=== PATIENT | female | born 1975 | race Caucasian/White ===

== ENCOUNTER 2016-09-20 18:22 | Emergency (ER) | payer SELFPAY ==
[2016-09-20 18:28] VITALS: BMI 27.4
--- NOTE | 2016-09-20 18:42 | DR.HEADACH ---
HPI - Time Seen Time seen: 18:40 - Primary Care Physician Primary Care Physician: JACKIE - Complaint/Symptoms Chief Complaint Doctors Comments: Patient states that she had had her migraine for three days and it is not getting better. The pain is throbbing, frontal, sharp, aggravated by light and noise. She is followed by neurologist Dr Mejia. Chief Complaint:: PT. C/O MIGRAINE THAT BEGAN TUESDAY. PT. STATES THIS IS THE WORST ONE SHE HAS EVER HAD. - Source History Provided: Patient - Mode of Arrival Mode of Arrival: Ambulatory - Timing Onset of Chief Complaint: 09/17/16 PMH - PMH Past Medical History: Yes Past Medical History: Asthma, Headaches Past Surgical History: Yes Surgical History: - Family History History of Family Medical Conditions: Yes Family Medical History: Cancer - Social History Does patient currently use any type of tobacco product: No Have you used tobacco products in the last 12 months: No Type of Tobacco Use: None Does any household member use tobacco: No Alcohol Use: None Do you use any recreational Drugs:: No Lives With: Family Lives Where: Home - infectious screening In the last 2 months have you had wt loss of >10#?: NO Have you had fever, night sweats or hemotysis?: No Have you traveled outside the country in the last 6 months?: No Isolation: Standard ROS - Review of Systems Constitutional: No Symptoms Reported Eyes: No Symptoms Reported ENTM: No Symptoms Reported Respiratoy: No Symptoms Reported Cardiovascular: No Symptoms Reported Gastrointestinal/Abdominal: No Symptoms Reported Genitourinary: No Symptoms Reported Neurological: Headache Musculoskeletal: No Symptoms Reported Integumentary: No Symptoms Reported Hematologic/Lymphatic: No Symptoms Reported Endocrine: No Symptoms Reported Psychiatric: No Symptoms Reported All Other Systems: Reviewed and Negative PE - Vital Signs Vitals: Temperature 99.5 F Pulse Rate [Left Brachial] 110 Pulse Rate 139 Respiratory Rate 18 Blood Pressure [Left Arm] 95/63 Blood Pressure 86/41 O2 Sat by Pulse Oximetry 100 - General Limitations: No Limitations General Appearance: Alert, In No Apparent Distress - Head Head Exam: Normal Inspection, Atraumatic - Eyes Eye exam: Normal Appearance, PERRL, EOMI Eyelids: Normal Inspection: Bilateral Pupils: Regular, Round: Bilateral - ENT ENT Exam: Normal Exam External Ear Exam: Normal External Inspection TM/Canal Exam: Bilateral Normal Nose Exam: Normal Nose Exam Mouth Exam: Normal Inspection Teeth Exam: Normal Inspection Throat Exam: Normal Inspection - Neck Neck Exam: Normal Inspection - Chest Chest Inspection: Normal Inspection - Respiratory Respiratory Exam: Normal Lung Sounds Bilat Respiratory Exam: Bilateral Clear to Auscultation - Cardiovascular Cardiovascular Exam: Regular Rate, Normal Rhythm - Abdominal Exam Abdominal Exam: Normal Inspection Abdominal Tenderness: negative: RUQ, RLQ, LUQ, LLQ, Epigastrium, Suprapubic, Diffuse, Mild, Moderate, Severe, Other - Extremities Extremities Exam: Normal Inspection, Full ROM - Back Back Exam: Normal Inspection - Neurologic Neurological Exam: Alert, Oriented X3, CN II-XII Intact - Psychiatric Psychiatric Exam: Normal Affect - Skin Skin Exam: Warm, Dry Course - Treatment Treatment: Demerol 25mg,x2,zofran,ns 500ml - Reevaluation 1st: Improved - Diagnosis Discharge Problem: Migraine headache Qualifiers: Migraine type: without aura Status migrainosus presence: without status migrainosus Intractability: intractable Qualified Code(s): G43.019 - Migraine without aura, intractable, without status migrainosus - Discharge Plan Condition: Stable - Follow ups/Referrals Follow ups/Referrals: MOISES MEJIA [Primary Care Provider] - 3 days - Instructions
[2016-09-20] MEDS ORDERED: NS 1000 ML 500 ML IV ONE (18:44)
[2016-09-20] MEDS ORDERED: DECADRON INJ IV ONE (18:46)
[2016-09-20] MEDS ORDERED: PHENERGAN INJ 25 MG IV ONE (18:47)
[2016-09-20] MEDS ORDERED: DEMEROL INJ IVP ONE ×2 (18:49→19:38)
[2016-09-20] MEDS ORDERED: DECADRON INJ ONE (18:54)
[2016-09-20] MEDS ORDERED: PHENERGAN INJ 25 MG ONE (18:54)
[2016-09-20] MEDS ORDERED: NS 1000 ML 1,000 ML ONE (18:54)
[2016-09-20] MEDS ORDERED: DEMEROL INJ ONE ×2 (18:55→19:44)
[2016-09-20] MEDS ORDERED: NS 100 ML IV 100 ML IV ONE (19:07)
[2016-09-20 19:48] VITALS: BP 95/63
== END 2016-09-20 20:21 | disposition home or self-care (01) ==
LOC: ER 18:22
DX: G43.019 Migraine without aura, intractable, without status migrainosus (principal)
CPT/HCPCS: 96365; 96374; 96375; 99283; A4222; J1100; J2175; J2550